=== PATIENT | male | born 1985 | race Caucasian/White ===

== ENCOUNTER 2020-10-17 04:14 | Emergency (ER) | payer OTHER ==
[~2020-10-17 04:14] MED LIST: BACTRIM DS TAB1 EACH PO; CEFDINIR300 MG PO; LOPRESSOR25 MG PO; OXYCODONE-ACET1 EAC1 PO
[2020-10-17] MEDS ORDERED: BACTRIM DS TAB1 EACH PO (07:23)
== END 2020-10-17 07:45 | disposition home or self-care (01) ==
LOC: FER 04:14
DX: S61.210A Laceration without foreign body of right index finger without damage to nail, initial encounter (principal); F17.210 Nicotine dependence, cigarettes, uncomplicated; Z23 Encounter for immunization; W25.XXXA Contact with sharp glass, initial encounter; Y92.009 Unspecified place in unspecified non-institutional (private) residence as the place of occurrence of the external cause
CPT/HCPCS: 73140; 90471; 90715

== ENCOUNTER 2021-05-02 16:51 | Emergency (ER) | payer OTHER ==
[2021-05-02] MEDS ORDERED: FLEXERIL5 MG PO (19:25)
== END 2021-05-02 19:40 | disposition home or self-care (01) ==
LOC: FER 16:51
DX: S63.502A Unspecified sprain of left wrist, initial encounter (principal); S40.811A Abrasion of right upper arm, initial encounter; M25.551 Pain in right hip; F17.200 Nicotine dependence, unspecified, uncomplicated; I10 Essential (primary) hypertension; Z23 Encounter for immunization; V29.9XXA Motorcycle rider (driver) (passenger) injured in unspecified traffic accident, initial encounter; Y92.410 Unspecified street and highway as the place of occurrence of the external cause
CPT/HCPCS: 73100; 73502; 90471; 90715